=== PATIENT | female | born 1940 | race Caucasian/White ===

== ENCOUNTER 2018-10-18 14:06 | Inpatient (IN) | payer MEDICARE, OTHER ==
[~2018-10-18] VITALS: Ht 152.4 cm; Wt 56.2 kg
[2018-10-18 16:19] VITALS: BP 173/78
[2018-10-18] MEDS ORDERED: ALBUTEROL/IPRATROPIUM 2.5MG/0.5MG, 3 ML NEB ONE (16:30)
[2018-10-18] MEDS ORDERED: ALBUTEROL/IPRATROPIUM 2.5MG/0.5MG, 3 ML ONE (16:49)
[2018-10-18] MEDS: ALBUTEROL/IPRATROPIUM 2.5MG/0.5MG, 3 ML NPPB SCH ×3 (16:50→22:33)
[2018-10-18] MEDS ORDERED: methylPREDNISolone SOD SUCC 125 MG/2 ML IVPush STA (16:51)
[2018-10-18] MEDS ORDERED: methylPREDNISolone SOD SUCC 125 MG/2 ML ONE (16:52)
[2018-10-18] MEDS ORDERED: PLEASE ENTER ALLERGIES MC SCH (17:00)
[2018-10-18] MEDS ORDERED: BISACODYL 10 MG SUPP PR PRN (17:00)
[2018-10-18] MEDS ORDERED: POLYETHYLENE GLYCOL 17 GM PACKET PO PRN (17:00)
[2018-10-18] MEDS ORDERED: hydrALAzine 20 MG/ML, 1ML IVPush PRN (17:00)
[2018-10-18] MEDS: PLEASE ENTER HEIGHT AND WEIGHT MC SCH ×2 (17:00→17:02)
[2018-10-18] MEDS ORDERED: FUROSEMIDE 20 MG/2 ML ONE (17:04)
[2018-10-18] MEDS ORDERED: FUROSEMIDE 20 MG/2 ML IV STA (17:04)
[2018-10-18 17:16] LABS: MEAN CORPUSCULAR HEMOGLOBIN 28.3 pg (27.0-34.8); MEAN CORPUSCULAR HGB CONC 32.3 g/dL (32.4-35.8); MEAN CORPUSCULAR VOLUME 87.6 fL (80-100); MEAN PLATELET VOLUME 9.7 fL (7.4-10.4); PLATELET COUNT 331 x10^3/uL (130-400); RED BLOOD COUNT 4.08 x10^6/uL (3.82-5.3)
[2018-10-18] MEDS ORDERED: ALBU18HF INH (17:19)
[2018-10-18] MEDS ORDERED: CLOP75TA52 PO (17:19)
[2018-10-18] MEDS ORDERED: ISOS30TA8 PO (17:19)
[2018-10-18] MEDS ORDERED: FURO-93 PO (17:19)
[2018-10-18] MEDS ORDERED: LOSA25TA25 PO (17:19)
[2018-10-18 17:29] LABS: ALANINE AMINOTRANSFERASE 78 U/L (12-78); ALBUMIN 3.4 g/dL (3.4-5.0); ANION GAP 6 mmol/L (5-15); CALCIUM 8.7 mg/dL (8.5-10.1); CHLORIDE 100 mmol/L (98-107); CREATININE 1.22 mg/dL (0.55-1.02)
[2018-10-18] MEDS ORDERED: VANCOMYCIN PER PHARMACY MC PRN (17:30)
[2018-10-18 17:34] LABS: ALKALINE PHOSPHATASE 90 U/L (45-117); BILIRUBIN,TOTAL 0.4 mg/dL (0.2-1.0); TOTAL PROTEIN 7.7 g/dL (6.4-8.2); TROPONIN I 0.136 ng/mL (0.000-0.045)
[2018-10-18 17:35] LABS: BASOPHILS # (AUTO) 0.01 x10^3/uL (0-0.1); BASOPHILS % (AUTO) 0 % (0-1); EOSINOPHILS % (AUTO) 0 % (1-7); LYMPHOCYTES # (AUTO) 0.36 x10^3/uL (1-3.4); LYMPHOCYTES % (AUTO) 2 % (22-44); MD MORPH REVIEW ONLY; MONOCYTES # (AUTO) 1.05 x10^3/uL (0.2-0.8); MONOCYTES % (AUTO) 5 % (2-9); NEUTROPHILS # (AUTO) 20.48 x10^3/uL (1.8-6.8); NEUTROPHILS % (AUTO) 94 % (42-75)
[2018-10-18 17:36] LABS: ANISOCYTOSIS 1+
[2018-10-18 17:37] LABS: <PLATELET ESTIMATE> ADEQUATE; LARGE PLATELETS 1+; POLYCHROMASIA 1+; TOXIC GRAN 1+
[2018-10-18] MEDS ORDERED: ASPI-496 PO (17:39)
[2018-10-18 17:49] LABS: RAPID INFLUENZA A Negative (Negative); RAPID INFLUENZA B Negative (Negative)
[2018-10-18] MEDS: HEPARIN 5,000 UNITS/ML, 1ML SQ SCH (18:20)
[2018-10-18 18:21] VITALS: BP 112/43
[2018-10-18] MEDS: PIPERACILLIN/TAZO/PMX 3.375GM 50 ML IV SCH (18:31)
[2018-10-18] MEDS: CLOPIDOGREL 75 MG TABLET PO SCH (18:33)
[2018-10-18] MEDS: ASPIRIN 81 MG TABLET CHEW PO SCH (18:33)
[2018-10-18] MEDS ORDERED: VANCOMYCIN PMX 1GM/200ML 200 ML IV SCH (19:00)
[2018-10-18] MEDS ORDERED: PHARMACOKINETIC CONSULTATION MC ONE (19:00)
[2018-10-18] MEDS ORDERED: PHARMACOKINETIC MONITORING MC PRN (19:00)
[2018-10-18] MEDS: FAMOTIDINE 20 MG/2 ML IVPush SCH (21:44)
[2018-10-18 22:29] LABS: TROPONIN I 0.149 ng/mL (0.000-0.045)
[2018-10-19] MEDS: methylPREDNISolone SOD SUCC 125 MG/2 ML IVPush SCH ×5 (00:09→22:48)
[2018-10-19] MEDS: PIPERACILLIN/TAZO/PMX 3.375GM 50 ML IV SCH ×5 (00:09→22:48)
[2018-10-19] MEDS: HEPARIN 5,000 UNITS/ML, 1ML SQ SCH ×3 (00:11→17:31)
[2018-10-19] MEDS: ALBUTEROL/IPRATROPIUM 2.5MG/0.5MG, 3 ML NPPB SCH ×6 (03:22→22:55)
[2018-10-19 05:00] VITALS: BP 112/55
[2018-10-19 05:17] LABS: MEAN CORPUSCULAR HEMOGLOBIN 28.1 pg (27.0-34.8); MEAN CORPUSCULAR HGB CONC 32.1 g/dL (32.4-35.8); MEAN CORPUSCULAR VOLUME 87.5 fL (80-100); MEAN PLATELET VOLUME 10.2 fL (7.4-10.4); PLATELET COUNT 245 x10^3/uL (130-400); RED BLOOD COUNT 3.65 x10^6/uL (3.82-5.3); RED CELL DISTRIBUTION WIDTH 15.9 % (9.6-15.2)
[2018-10-19 05:23] LABS: ALANINE AMINOTRANSFERASE 65 U/L (12-78); ALBUMIN 2.9 g/dL (3.4-5.0); ANION GAP 6 mmol/L (5-15); CALCIUM 8.3 mg/dL (8.5-10.1); CHLORIDE 102 mmol/L (98-107); CREATININE 0.96 mg/dL (0.55-1.02)
[2018-10-19 05:27] LABS: ALKALINE PHOSPHATASE 77 U/L (45-117); BILIRUBIN,TOTAL 0.5 mg/dL (0.2-1.0); TOTAL PROTEIN 6.9 g/dL (6.4-8.2); TROPONIN I 0.117 ng/mL (0.000-0.045)
[2018-10-19 06:09] LABS: BASOPHILS % (AUTO) 0 % (0-1); EOSINOPHILS % (AUTO) 0 % (1-7); LYMPHOCYTES # (AUTO) 0.29 x10^3/uL (1-3.4); LYMPHOCYTES % (AUTO) 3 % (22-44); MD SCAN; MONOCYTES # (AUTO) 0.23 x10^3/uL (0.2-0.8); MONOCYTES % (AUTO) 3 % (2-9); NEUTROPHILS % (AUTO) 94 % (42-75)
[2018-10-19] MEDS ORDERED: CLOPIDOGREL 75 MG TABLET PO SCH (09:00)
[2018-10-19] MEDS: FAMOTIDINE 20 MG/2 ML IVPush SCH ×2 (09:12→20:47)
[2018-10-19] MEDS: ISOSORBIDE MONONITRATE ER 30 MG TABLET PO SCH (09:16)
[2018-10-19] MEDS: AcetaZOLAMIDE INJ 500 MG IVPush SCH (13:42)
[2018-10-19] MEDS: ASPIRIN 81 MG TABLET CHEW PO SCH (17:35)
[2018-10-19] MEDS: CLOPIDOGREL 75 MG TABLET PO SCH (17:35)
[2018-10-19] MEDS ORDERED: AcetaZOLAMIDE INJ 500 MG IVPush SCH (21:00)
[2018-10-20] MEDS: HEPARIN 5,000 UNITS/ML, 1ML SQ SCH ×3 (01:10→16:57)
[2018-10-20] MEDS: ALBUTEROL/IPRATROPIUM 2.5MG/0.5MG, 3 ML NPPB SCH ×7 (03:01→20:00)
[2018-10-20] MEDS: methylPREDNISolone SOD SUCC 125 MG/2 ML IVPush SCH ×2 (04:00→09:09)
[2018-10-20] MEDS: PIPERACILLIN/TAZO/PMX 3.375GM 50 ML IV SCH (04:02)
[2018-10-20 04:34] LABS: MEAN CORPUSCULAR HEMOGLOBIN 27.5 pg (27.0-34.8); MEAN CORPUSCULAR HGB CONC 31.8 g/dL (32.4-35.8); MEAN CORPUSCULAR VOLUME 86.6 fL (80-100); MEAN PLATELET VOLUME 9.9 fL (7.4-10.4); PLATELET COUNT 295 x10^3/uL (130-400); RED BLOOD COUNT 3.65 x10^6/uL (3.82-5.3); RED CELL DISTRIBUTION WIDTH 15.8 % (9.6-15.2)
[2018-10-20 04:44] LABS: ANION GAP 4 mmol/L (5-15); CALCIUM 8.6 mg/dL (8.5-10.1); CHLORIDE 105 mmol/L (98-107)
[2018-10-20 05:00] VITALS: BP 128/52
[2018-10-20 05:40] LABS: BASOPHILS % (AUTO) 0 % (0-1); EOSINOPHILS % (AUTO) 0 % (1-7); LYMPHOCYTES # (AUTO) 0.35 x10^3/uL (1-3.4); LYMPHOCYTES % (AUTO) 2 % (22-44); MD SCAN; MONOCYTES # (AUTO) 0.49 x10^3/uL (0.2-0.8); MONOCYTES % (AUTO) 3 % (2-9); NEUTROPHILS # (AUTO) 14.74 x10^3/uL (1.8-6.8); NEUTROPHILS % (AUTO) 95 % (42-75)
[2018-10-20] MEDS ORDERED: VANCOMYCIN 1,200 MG in SODIUM CHLORIDE 0.9% 250 ML IV SCH (07:00)
[2018-10-20] MEDS ORDERED: POTASSIUM CHLORIDE 20 MEQ TAB.ER.PRT PO ONE (08:30)
[2018-10-20] MEDS: ISOSORBIDE MONONITRATE ER 30 MG TABLET PO SCH (09:07)
[2018-10-20] MEDS: CLOPIDOGREL 75 MG TABLET PO SCH (09:07)
[2018-10-20] MEDS: ASPIRIN 81 MG TABLET CHEW PO SCH (09:08)
[2018-10-20] MEDS: AcetaZOLAMIDE INJ 500 MG IVPush SCH ×2 (09:08→22:49)
[2018-10-20] MEDS: FAMOTIDINE 20 MG/2 ML IVPush SCH (09:08)
[2018-10-20] MEDS: AMPICILLIN/SULBACTAM 3 GM in SODIUM CHLORIDE 0.9% 100 ML IV SCH ×3 (10:13→22:49)
[2018-10-20 18:49] VITALS: BP 137/67
[2018-10-21] MEDS: HEPARIN 5,000 UNITS/ML, 1ML SQ SCH ×3 (01:24→17:49)
[2018-10-21 01:46] VITALS: BP 143/69
[2018-10-21 05:26] LABS: BASOPHILS % (AUTO) 0 % (0-1); EOSINOPHILS # (AUTO) 0.28 x10^3/uL (0-0.4); EOSINOPHILS % (AUTO) 2 % (1-7); LYMPHOCYTES # (AUTO) 0.64 x10^3/uL (1-3.4); LYMPHOCYTES % (AUTO) 4 % (22-44); MD NO; MEAN CORPUSCULAR HEMOGLOBIN 28.1 pg (27.0-34.8); MEAN CORPUSCULAR HGB CONC 32.1 g/dL (32.4-35.8); MEAN CORPUSCULAR VOLUME 87.5 fL (80-100); MEAN PLATELET VOLUME 10.1 fL (7.4-10.4); MONOCYTES # (AUTO) 1.15 x10^3/uL (0.2-0.8); MONOCYTES % (AUTO) 7 % (2-9); NEUTROPHILS # (AUTO) 15.07 x10^3/uL (1.8-6.8); NEUTROPHILS % (AUTO) 88 % (42-75); PLATELET COUNT 264 x10^3/uL (130-400); RED BLOOD COUNT 3.29 x10^6/uL (3.82-5.3); RED CELL DISTRIBUTION WIDTH 16.3 % (9.6-15.2)
[2018-10-21 05:37] LABS: ANION GAP 6 mmol/L (5-15); CALCIUM 8.4 mg/dL (8.5-10.1); CHLORIDE 108 mmol/L (98-107)
[2018-10-21 05:39] LABS: CREATININE 0.93 mg/dL (0.55-1.02)
[2018-10-21] MEDS: AMPICILLIN/SULBACTAM 3 GM in SODIUM CHLORIDE 0.9% 100 ML IV SCH ×4 (05:41→21:28)
[2018-10-21] MEDS: ALBUTEROL/IPRATROPIUM 2.5MG/0.5MG, 3 ML NPPB SCH ×4 (06:40→20:05)
[2018-10-21 07:25] VITALS: BP 151/76
[2018-10-21] MEDS: AcetaZOLAMIDE INJ 500 MG IVPush SCH ×2 (08:33→21:19)
[2018-10-21] MEDS: ISOSORBIDE MONONITRATE ER 30 MG TABLET PO SCH (08:33)
[2018-10-21 14:14] VITALS: BP 121/66
[2018-10-21] MEDS: ASPIRIN 81 MG TABLET CHEW PO SCH (17:49)
[2018-10-21] MEDS: CLOPIDOGREL 75 MG TABLET PO SCH (17:49)
[2018-10-21 19:48] VITALS: BP 152/73
[2018-10-22 01:43] VITALS: BP 140/74
[2018-10-22] MEDS: HEPARIN 5,000 UNITS/ML, 1ML SQ SCH ×3 (01:58→16:49)
[2018-10-22] MEDS: AMPICILLIN/SULBACTAM 3 GM in SODIUM CHLORIDE 0.9% 100 ML IV SCH ×4 (04:32→23:31)
[2018-10-22] MEDS: ALBUTEROL/IPRATROPIUM 2.5MG/0.5MG, 3 ML NPPB SCH ×4 (06:33→19:20)
[2018-10-22 06:52] VITALS: BP 150/74
[2018-10-22] MEDS: ISOSORBIDE MONONITRATE ER 30 MG TABLET PO SCH (08:52)
[2018-10-22] MEDS: AcetaZOLAMIDE INJ 500 MG IVPush SCH (08:53)
[2018-10-22 14:00] VITALS: BP 133/65
[2018-10-22] MEDS: ASPIRIN 81 MG TABLET CHEW PO SCH (16:49)
[2018-10-22] MEDS: CLOPIDOGREL 75 MG TABLET PO SCH (16:49)
[2018-10-22 19:17] VITALS: BP 155/74
[2018-10-22] MEDS ORDERED: AcetaZOLAMIDE INJ 500 MG IVPush SCH (21:00)
[2018-10-23] MEDS: HEPARIN 5,000 UNITS/ML, 1ML SQ SCH ×3 (01:04→18:02)
[2018-10-23 01:56] VITALS: BP 147/74
[2018-10-23] MEDS: AMPICILLIN/SULBACTAM 3 GM in SODIUM CHLORIDE 0.9% 100 ML IV SCH ×3 (05:06→18:01)
[2018-10-23] MEDS: ALBUTEROL/IPRATROPIUM 2.5MG/0.5MG, 3 ML NPPB SCH ×4 (06:25→19:37)
[2018-10-23 07:15] VITALS: BP 160/75
[2018-10-23] MEDS: ISOSORBIDE MONONITRATE ER 30 MG TABLET PO SCH (09:00)
[2018-10-23 09:53] LABS: CALCIUM 8.4 mg/dL (8.5-10.1); CREATININE 0.94 mg/dL (0.55-1.02); MD YES; MEAN CORPUSCULAR HEMOGLOBIN 28.1 pg (27.0-34.8); MEAN CORPUSCULAR HGB CONC 31.9 g/dL (32.4-35.8); MEAN CORPUSCULAR VOLUME 88.1 fL (80-100); MEAN PLATELET VOLUME 9.4 fL (7.4-10.4); PLATELET COUNT 318 x10^3/uL (130-400); RED BLOOD COUNT 4.03 x10^6/uL (3.82-5.3); RED CELL DISTRIBUTION WIDTH 16.2 % (9.6-15.2)
[2018-10-23 10:05] LABS: ANION GAP 5 mmol/L (5-15); CHLORIDE 113 mmol/L (98-107)
[2018-10-23 10:15] LABS: ANISOCYTOSIS 1+; LYMPH#(MANUAL) 1.84 x10^3/uL (1-3.4); LYMPHS% (MANUAL) 11 % (22-44); MONOS#(MANUAL) 0.67 x10^3/uL (0.3-2.7); MONOS% (MANUAL) 4 % (2-9); POLYCHROMASIA 1+; SEGS% (MANUAL) 85 % (42-75)
[2018-10-23 10:16] LABS: <PLATELET ESTIMATE> ADEQUATE; <PLT MORPHOLOGY> NORMAL PLT MORPH
[2018-10-23 12:30] VITALS: BP 174/78
[2018-10-23] MEDS: CLOPIDOGREL 75 MG TABLET PO SCH (18:01)
[2018-10-23] MEDS: ASPIRIN 81 MG TABLET CHEW PO SCH (18:01)
[2018-10-23 19:40] VITALS: BP 168/86
[2018-10-24] MEDS: HEPARIN 5,000 UNITS/ML, 1ML SQ SCH ×3 (01:00→18:05)
[2018-10-24] MEDS: AMPICILLIN/SULBACTAM 3 GM in SODIUM CHLORIDE 0.9% 100 ML IV SCH ×4 (01:12→18:05)
[2018-10-24 02:30] VITALS: BP 153/69
[2018-10-24 06:52] VITALS: BP 159/75
[2018-10-24] MEDS: ALBUTEROL/IPRATROPIUM 2.5MG/0.5MG, 3 ML NPPB SCH ×4 (07:08→20:10)
[2018-10-24] MEDS: ISOSORBIDE MONONITRATE ER 30 MG TABLET PO SCH (07:44)
[2018-10-24] MEDS ORDERED: POLY17PO5 PO (12:59)
[2018-10-24] MEDS ORDERED: PRED5TAB PO ×2 (12:59)
[2018-10-24] MEDS ORDERED: AMOX1TAB64 PO ×2 (12:59)
[2018-10-24] MEDS ORDERED: IPRA3AMP30 NPPB (12:59)
[2018-10-24 13:17] VITALS: BP 145/66
[2018-10-24] MEDS: FUROSEMIDE 20 MG TABLET PO SCH (14:17)
[2018-10-24] MEDS: CLOPIDOGREL 75 MG TABLET PO SCH (18:05)
[2018-10-24] MEDS: ASPIRIN 81 MG TABLET CHEW PO SCH (18:05)
[2018-10-24 19:50] VITALS: BP 155/81
[2018-10-24] MEDS: LOSARTAN 25MG TABLET PO SCH (20:57)
[2018-10-25] MEDS: HEPARIN 5,000 UNITS/ML, 1ML SQ SCH ×4 (01:00→17:26)
[2018-10-25 01:13] VITALS: BP 165/66
[2018-10-25] MEDS: AMPICILLIN/SULBACTAM 3 GM in SODIUM CHLORIDE 0.9% 100 ML IV SCH ×4 (01:43→19:34)
[2018-10-25 06:34] VITALS: BP 174/84
[2018-10-25] MEDS: ALBUTEROL/IPRATROPIUM 2.5MG/0.5MG, 3 ML NPPB SCH ×4 (07:00→19:15)
[2018-10-25] MEDS: ISOSORBIDE MONONITRATE ER 30 MG TABLET PO SCH (07:50)
[2018-10-25] MEDS: FUROSEMIDE 20 MG TABLET PO SCH (07:51)
[2018-10-25] MEDS: LOSARTAN 25MG TABLET PO SCH ×2 (07:57→20:39)
[2018-10-25 12:34] VITALS: BP 110/54
[2018-10-25] MEDS ORDERED: DEXTROSE 5% 250 ML IV SCH (15:30)
[2018-10-25] MEDS: ASPIRIN 81 MG TABLET CHEW PO SCH (17:25)
[2018-10-25] MEDS: CARVEDILOL 3.125 MG TABLET PO SCH (17:26)
[2018-10-25] MEDS: CLOPIDOGREL 75 MG TABLET PO SCH (17:28)
[2018-10-25 18:27] VITALS: BP 131/69
[2018-10-26] MEDS: HEPARIN 5,000 UNITS/ML, 1ML SQ SCH ×3 (01:00→16:05)
[2018-10-26 01:20] VITALS: BP 164/92
[2018-10-26] MEDS: AMPICILLIN/SULBACTAM 3 GM in SODIUM CHLORIDE 0.9% 100 ML IV SCH ×4 (01:49→19:44)
[2018-10-26 04:44] LABS: BASOPHILS % (AUTO) 1 % (0-1); EOSINOPHILS # (AUTO) 0.08 x10^3/uL (0-0.4); EOSINOPHILS % (AUTO) 0 % (1-7); LYMPHOCYTES # (AUTO) 1.85 x10^3/uL (1-3.4); LYMPHOCYTES % (AUTO) 10 % (22-44); MD NO; MEAN CORPUSCULAR HGB CONC 32.4 g/dL (32.4-35.8); MEAN CORPUSCULAR VOLUME 86.5 fL (80-100); MEAN PLATELET VOLUME 9.6 fL (7.4-10.4); MONOCYTES # (AUTO) 1.15 x10^3/uL (0.2-0.8); MONOCYTES % (AUTO) 7 % (2-9); NEUTROPHILS # (AUTO) 14.56 x10^3/uL (1.8-6.8); NEUTROPHILS % (AUTO) 82 % (42-75); PLATELET COUNT 286 x10^3/uL (130-400); RED BLOOD COUNT 3.78 x10^6/uL (3.82-5.3); RED CELL DISTRIBUTION WIDTH 16.6 % (9.6-15.2)
[2018-10-26 04:54] LABS: ALBUMIN 2.5 g/dL (3.4-5.0); ANION GAP 5 mmol/L (5-15); CALCIUM 7.8 mg/dL (8.5-10.1); CHLORIDE 111 mmol/L (98-107)
[2018-10-26 04:57] LABS: ALANINE AMINOTRANSFERASE 38 U/L (12-78); ALKALINE PHOSPHATASE 75 U/L (45-117); BILIRUBIN,TOTAL 0.3 mg/dL (0.2-1.0); TOTAL PROTEIN 5.9 g/dL (6.4-8.2)
[2018-10-26] MEDS: CARVEDILOL 3.125 MG TABLET PO SCH ×2 (05:39→18:16)
[2018-10-26] MEDS: ALBUTEROL/IPRATROPIUM 2.5MG/0.5MG, 3 ML NPPB SCH ×4 (06:40→19:10)
[2018-10-26 07:28] VITALS: BP 142/60
[2018-10-26] MEDS: LOSARTAN 25MG TABLET PO SCH ×2 (08:05→19:44)
[2018-10-26] MEDS: FUROSEMIDE 20 MG TABLET PO SCH (08:05)
[2018-10-26] MEDS: ISOSORBIDE MONONITRATE ER 30 MG TABLET PO SCH (08:06)
[2018-10-26 12:47] VITALS: BP 146/70
[2018-10-26] MEDS: CLOPIDOGREL 75 MG TABLET PO SCH (18:16)
[2018-10-26] MEDS: ASPIRIN 81 MG TABLET CHEW PO SCH (18:16)
[2018-10-26 18:45] VITALS: BP 123/57
[2018-10-27] VITALS (7 sets, daily range): BP systolic 127–165; BP diastolic 65–94
[2018-10-27] MEDS: HEPARIN 5,000 UNITS/ML, 1ML SQ SCH ×3 (00:43→17:12)
[2018-10-27] MEDS: AMPICILLIN/SULBACTAM 3 GM in SODIUM CHLORIDE 0.9% 100 ML IV SCH ×2 (01:46→08:10)
[2018-10-27] MEDS: CARVEDILOL 3.125 MG TABLET PO SCH ×2 (06:00→17:48)
[2018-10-27] MEDS: ALBUTEROL/IPRATROPIUM 2.5MG/0.5MG, 3 ML NPPB SCH ×4 (06:40→20:10)
[2018-10-27] MEDS: FUROSEMIDE 20 MG TABLET PO SCH (08:10)
[2018-10-27] MEDS: LOSARTAN 25MG TABLET PO SCH ×2 (08:10→20:24)
[2018-10-27] MEDS: ISOSORBIDE MONONITRATE ER 30 MG TABLET PO SCH (08:10)
[2018-10-27] MEDS ORDERED: OMNIPAQUE 350 MG/ML, 100ML BOTTLE ONE (11:11)
[2018-10-27] MEDS: DOXYCYCLINE 100MG TABLET PO SCH ×2 (13:06→20:24)
[2018-10-27] MEDS: CEFDINIR 300 MG CAPSULE PO SCH ×2 (13:06→20:24)
[2018-10-27] MEDS: ASPIRIN 81 MG TABLET CHEW PO SCH (17:48)
[2018-10-27] MEDS: CLOPIDOGREL 75 MG TABLET PO SCH (17:48)
[2018-10-28] MEDS: HEPARIN 5,000 UNITS/ML, 1ML SQ SCH ×3 (01:00→17:30)
[2018-10-28 01:46] VITALS: BP 154/74
[2018-10-28 05:35] VITALS: BP 161/83
[2018-10-28] MEDS: CARVEDILOL 3.125 MG TABLET PO SCH ×2 (06:00→17:30)
[2018-10-28 07:00] VITALS: BP 158/73
[2018-10-28] MEDS: ALBUTEROL/IPRATROPIUM 2.5MG/0.5MG, 3 ML NPPB SCH ×5 (07:20→22:55)
[2018-10-28 08:31] LABS: BASOPHILS % (AUTO) 0 % (0-1); EOSINOPHILS # (AUTO) 0.02 x10^3/uL (0-0.4); EOSINOPHILS % (AUTO) 0 % (1-7); LYMPHOCYTES # (AUTO) 1.56 x10^3/uL (1-3.4); LYMPHOCYTES % (AUTO) 10 % (22-44); MD NO; MEAN CORPUSCULAR HGB CONC 31.2 g/dL (32.4-35.8); MEAN CORPUSCULAR VOLUME 86.5 fL (80-100); MEAN PLATELET VOLUME 9.7 fL (7.4-10.4); MONOCYTES # (AUTO) 0.89 x10^3/uL (0.2-0.8); MONOCYTES % (AUTO) 6 % (2-9); NEUTROPHILS # (AUTO) 12.66 x10^3/uL (1.8-6.8); NEUTROPHILS % (AUTO) 84 % (42-75); PLATELET COUNT 244 x10^3/uL (130-400); RED BLOOD COUNT 3.79 x10^6/uL (3.82-5.3); RED CELL DISTRIBUTION WIDTH 17.2 % (9.6-15.2)
[2018-10-28 08:43] LABS: ALBUMIN 2.5 g/dL (3.4-5.0); ANION GAP 4 mmol/L (5-15); CALCIUM 8.4 mg/dL (8.5-10.1); CHLORIDE 109 mmol/L (98-107); CREATININE 0.83 mg/dL (0.55-1.02)
[2018-10-28] MEDS: DOXYCYCLINE 100MG TABLET PO SCH ×2 (09:09→20:11)
[2018-10-28] MEDS: CEFDINIR 300 MG CAPSULE PO SCH ×2 (09:10→20:11)
[2018-10-28] MEDS: ISOSORBIDE MONONITRATE ER 30 MG TABLET PO SCH (09:10)
[2018-10-28] MEDS: FUROSEMIDE 20 MG TABLET PO SCH (09:10)
[2018-10-28] MEDS: LOSARTAN 25MG TABLET PO SCH ×2 (09:11→20:12)
[2018-10-28 12:48] VITALS: BP 146/65
[2018-10-28] MEDS: ASPIRIN 81 MG TABLET CHEW PO SCH (17:30)
[2018-10-28] MEDS: CLOPIDOGREL 75 MG TABLET PO SCH (17:30)
[2018-10-28 19:29] VITALS: BP 126/70
[2018-10-29] MEDS: HEPARIN 5,000 UNITS/ML, 1ML SQ SCH ×3 (01:34→17:00)
[2018-10-29 02:58] VITALS: BP 142/74
[2018-10-29] MEDS: CARVEDILOL 3.125 MG TABLET PO SCH ×2 (05:54→18:13)
[2018-10-29 06:39] VITALS: BP 153/70
[2018-10-29] MEDS: ALBUTEROL/IPRATROPIUM 2.5MG/0.5MG, 3 ML NPPB SCH ×4 (08:30→21:36)
[2018-10-29] MEDS: DOXYCYCLINE 100MG TABLET PO SCH ×2 (09:14→20:20)
[2018-10-29] MEDS: ISOSORBIDE MONONITRATE ER 30 MG TABLET PO SCH (09:14)
[2018-10-29] MEDS: FUROSEMIDE 20 MG TABLET PO SCH (09:15)
[2018-10-29] MEDS: LOSARTAN 25MG TABLET PO SCH ×2 (09:15→20:19)
[2018-10-29] MEDS: CEFDINIR 300 MG CAPSULE PO SCH ×2 (09:15→20:20)
[2018-10-29] MEDS ORDERED: TIOT18CA INH (09:23)
[2018-10-29] MEDS ORDERED: BUDE10.2 INH (09:24)
[2018-10-29] MEDS ORDERED: CEFD300C37 PO ×2 (09:27)
[2018-10-29] MEDS ORDERED: DOXY100T PO ×2 (09:27)
[2018-10-29] MEDS ORDERED: PRED10TA PO (09:27)
[2018-10-29 13:05] VITALS: BP 161/77
[2018-10-29] MEDS: CLOPIDOGREL 75 MG TABLET PO SCH (18:13)
[2018-10-29] MEDS: ASPIRIN 81 MG TABLET CHEW PO SCH (18:13)
[2018-10-29 18:53] VITALS: BP 138/68
[2018-10-30] MEDS: HEPARIN 5,000 UNITS/ML, 1ML SQ SCH ×2 (01:20→09:00)
[2018-10-30 01:21] VITALS: BP 156/70
[2018-10-30] MEDS: CARVEDILOL 3.125 MG TABLET PO SCH (06:16)
[2018-10-30 06:17] VITALS: BP 160/77
[2018-10-30] MEDS: ALBUTEROL/IPRATROPIUM 2.5MG/0.5MG, 3 ML NPPB SCH ×2 (07:00→10:51)
[2018-10-30 08:08] LABS: ALBUMIN 2.4 g/dL (3.4-5.0); ANION GAP 3 mmol/L (5-15); CALCIUM 8.3 mg/dL (8.5-10.1); CHLORIDE 109 mmol/L (98-107); CREATININE 0.98 mg/dL (0.55-1.02)
[2018-10-30 08:38] LABS: BASOPHILS % (AUTO) 0 % (0-1); EOSINOPHILS # (AUTO) 0.29 x10^3/uL (0-0.4); EOSINOPHILS % (AUTO) 2 % (1-7); LYMPHOCYTES # (AUTO) 1.44 x10^3/uL (1-3.4); LYMPHOCYTES % (AUTO) 9 % (22-44); MD NO; MEAN CORPUSCULAR HEMOGLOBIN 28.2 pg (27.0-34.8); MEAN CORPUSCULAR HGB CONC 32.3 g/dL (32.4-35.8); MEAN CORPUSCULAR VOLUME 87.2 fL (80-100); MEAN PLATELET VOLUME 9.8 fL (7.4-10.4); MONOCYTES # (AUTO) 0.81 x10^3/uL (0.2-0.8); MONOCYTES % (AUTO) 5 % (2-9); NEUTROPHILS # (AUTO) 13.06 x10^3/uL (1.8-6.8); NEUTROPHILS % (AUTO) 84 % (42-75); PLATELET COUNT 231 x10^3/uL (130-400); RED BLOOD COUNT 3.69 x10^6/uL (3.82-5.3); RED CELL DISTRIBUTION WIDTH 17.4 % (9.6-15.2)
[2018-10-30] MEDS: CEFDINIR 300 MG CAPSULE PO SCH (09:06)
[2018-10-30] MEDS: DOXYCYCLINE 100MG TABLET PO SCH (09:06)
[2018-10-30] MEDS: LOSARTAN 25MG TABLET PO SCH (09:07)
[2018-10-30] MEDS: ISOSORBIDE MONONITRATE ER 30 MG TABLET PO SCH (09:08)
[2018-10-30] MEDS: FUROSEMIDE 20 MG TABLET PO SCH (09:13)
[2018-10-30] MEDS ORDERED: CEFD300C37 PO (12:30)
[2018-10-30] MEDS ORDERED: DOXY100T PO (12:30)
== END 2018-10-30 14:15 | DRG 871 ==
LOC: 5SO 16:06 → CCU 16:40 → ICU 10-19 19:39 → 3NE 10-20 10:38
PROVIDERS: ADMIT Hospitalist; ATTEND Hospitalist
PROC: 5A09357 Assistance with Respiratory Ventilation, Less than 24 Consecutive Hours, Continuous Positive Airway Pressure (ICD-10-PCS; principal; 2018-10-18)
DX: A41.9 Sepsis, unspecified organism (principal); J18.9 Pneumonia, unspecified organism; I50.33 Acute on chronic diastolic (congestive) heart failure; J96.21 Acute and chronic respiratory failure with hypoxia; G92 Toxic encephalopathy; N17.9 Acute kidney failure, unspecified; J44.1 Chronic obstructive pulmonary disease with (acute) exacerbation; J98.11 Atelectasis; E87.2 Acidosis; J44.0 Chronic obstructive pulmonary disease with (acute) lower respiratory infection; L97.909 Non-pressure chronic ulcer of unspecified part of unspecified lower leg with unspecified severity; Z95.5 Presence of coronary angioplasty implant and graft; I27.20 Pulmonary hypertension, unspecified; I25.10 Atherosclerotic heart disease of native coronary artery without angina pectoris; I08.3 Combined rheumatic disorders of mitral, aortic and tricuspid valves; F17.200 Nicotine dependence, unspecified, uncomplicated; Z79.82 Long term (current) use of aspirin; Z79.02 Long term (current) use of antithrombotics/antiplatelets; Z79.899 Other long term (current) drug therapy; T50.905A Adverse effect of unspecified drugs, medicaments and biological substances, initial encounter; Y92.89 Other specified places as the place of occurrence of the external cause
CPT/HCPCS: 36415; 36600; 71045; 71275; 80048; 80053; 82040; 82803; 83605; 83735; 84100; 84484; 85025; 85379; 87040; 87081; 87400; 93005; 93306; 93922; 93970; 94640; 94660; 94664; G0378; J0295; J1644; J2543; J3370; J7060; J7620; Q9967; J1120; J1940; J2930; J3490; J7050; J7512